=== PATIENT | female | born 1950 | race Two or more races ===

== ENCOUNTER → 2017-10-06 | Outpatient (CLI) | payer OTHER ==
[~2017-10-06] MED LIST: EFFEXOR25 MG; ELABIL; ELAVIL; ELAVIL PO; Flagyl PO; INTESTINEX1 CA1 PO; Pepcid 20 MG TABLET PO; Protonix PO; TRAMADOL HCL-AP1 TAB PO; [UNRECOGNIZED DRUG - OTHER]
== END | disposition home or self-care (01) ==
LOC: RAD 15:50
DX: H25.011 Cortical age-related cataract, right eye (principal); Z01.810 Encounter for preprocedural cardiovascular examination

== ENCOUNTER 2018-04-05 15:53 | Outpatient (CLI) | payer OTHER | END 2018-04-05 16:57 | disposition home or self-care (01) | LOC: RAD 15:53 | DX: M25.571 Pain in right ankle and joints of right foot (principal); M25.572 Pain in left ankle and joints of left foot ==

== ENCOUNTER 2018-04-12 08:02 | Outpatient (CLI) | payer OTHER | END 2018-04-12 08:05 | disposition home or self-care (01) | LOC: SONOGRAMA 08:02 | DX: M25.571 Pain in right ankle and joints of right foot (principal); M25.572 Pain in left ankle and joints of left foot ==

== ENCOUNTER 2018-05-01 08:05 | Outpatient (CLI) | payer OTHER | END 2018-05-01 08:19 | disposition home or self-care (01) | LOC: MAMO-SONO 08:05 | DX: Z12.31 Encounter for screening mammogram for malignant neoplasm of breast (principal); Z87.898 Personal history of other specified conditions; Q85.01 Neurofibromatosis, type 1; K21.9 Gastro-esophageal reflux disease without esophagitis; I10 Essential (primary) hypertension; M54.5 Low back pain; G62.89 Other specified polyneuropathies; F41.8 Other specified anxiety disorders; N39.0 Urinary tract infection, site not specified; M17.11 Unilateral primary osteoarthritis, right knee; E78.89 Other lipoprotein metabolism disorders ==

== ENCOUNTER → 2018-05-16 | Outpatient (CLI) | payer OTHER | END | disposition home or self-care (01) | LOC: NUCLEAR 05-10 11:00 | DX: M81.0 Age-related osteoporosis without current pathological fracture (principal); Q85.01 Neurofibromatosis, type 1; K21.9 Gastro-esophageal reflux disease without esophagitis; I10 Essential (primary) hypertension; M54.5 Low back pain; G62.89 Other specified polyneuropathies; F41.8 Other specified anxiety disorders; N39.0 Urinary tract infection, site not specified; M17.11 Unilateral primary osteoarthritis, right knee; E78.89 Other lipoprotein metabolism disorders ==

== ENCOUNTER 2018-06-16 11:13 | Outpatient (CLI) | payer OTHER | END 2018-06-16 11:23 | disposition home or self-care (01) | LOC: RAD 501 11:13 | DX: M54.5 Low back pain (principal); M54.6 Pain in thoracic spine ==

== ENCOUNTER 2018-11-28 13:23 | Outpatient (CLI) | payer OTHER | END 2018-11-28 13:34 | disposition home or self-care (01) | LOC: SONOGRAMA 13:23 → MAMO-SONO 14:15 | DX: N60.11 Diffuse cystic mastopathy of right breast (principal); N60.12 Diffuse cystic mastopathy of left breast ==

== ENCOUNTER → 2019-01-10 | Emergency (ER) | payer OTHER ==
[~2019-01-10] VITALS: Ht 142.2 cm; Wt 56.7 kg
[~2019-01-10] MED LIST changes: +AZO STANDARD95 MG; +ZANTAC150 M3; +ZOCOR20 MG
== END | disposition home or self-care (01) ==
LOC: ER 06:57
DX: N39.0 Urinary tract infection, site not specified (principal)

== ENCOUNTER 2019-03-06 13:17 | Outpatient (CLI) | payer OTHER | END 2019-03-06 13:23 | disposition home or self-care (01) | LOC: SONOGRAMA 13:17 → MAMO-SONO 14:15 | DX: E04.2 Nontoxic multinodular goiter (principal); R22.1 Localized swelling, mass and lump, neck ==

== ENCOUNTER 2019-03-06 14:04 | Outpatient (CLI) | payer OTHER | END 2019-03-06 14:08 | disposition home or self-care (01) | LOC: RAD 14:04 | DX: M54.5 Low back pain (principal) ==

== ENCOUNTER 2019-05-03 13:30 | Outpatient (CLI) | payer OTHER | END 2019-05-03 14:40 | disposition home or self-care (01) | LOC: TOM 13:30 | DX: R51 Headache (principal); R32 Unspecified urinary incontinence ==

== ENCOUNTER → 2019-07-09 | Outpatient (CLI) | payer OTHER | END | disposition home or self-care (01) | LOC: RAD 09:59 | DX: J01.80 Other acute sinusitis (principal); J32.8 Other chronic sinusitis ==

== ENCOUNTER 2019-08-06 09:33 | Outpatient (CLI) | payer OTHER | END 2019-08-06 09:36 | disposition home or self-care (01) | LOC: MAMO-SONO 09:33 | DX: Z12.31 Encounter for screening mammogram for malignant neoplasm of breast (principal); E78.89 Other lipoprotein metabolism disorders; F41.8 Other specified anxiety disorders; G62.89 Other specified polyneuropathies; M17.11 Unilateral primary osteoarthritis, right knee; M54.5 Low back pain; Q85.01 Neurofibromatosis, type 1; K21.9 Gastro-esophageal reflux disease without esophagitis; M81.0 Age-related osteoporosis without current pathological fracture; M06.011 Rheumatoid arthritis without rheumatoid factor, right shoulder; M79.7 Fibromyalgia ==

== ENCOUNTER → 2019-10-31 | Outpatient (CLI) | payer OTHER | END | disposition home or self-care (01) | LOC: RAD 08:05 | DX: M54.2 Cervicalgia (principal) ==

== ENCOUNTER 2019-11-23 07:14 | Inpatient (IN) | payer OTHER ==
[~2019-11-23] VITALS: Ht 142.2 cm; Wt 56.7 kg
[2019-11-26] MEDS ORDERED: HYOSCYAMINE0.125 M1 SL (07:24)
[2019-11-26] MEDS ORDERED: AMITRIPTYLINE H25 MG PO (07:24)
== END 2019-11-26 09:07 | disposition home or self-care (01) | DRG 392 ==
LOC: ER 07:14 → SURG 20:05
PROVIDERS: ADMIT Internal Medicine; ATTEND Internal Medicine
PROC: BW21YZZ Computerized Tomography (CT Scan) of Abdomen and Pelvis using Other Contrast (ICD-10-PCS; principal; 2019-11-23)
DX: K52.89 Other specified noninfective gastroenteritis and colitis (principal); N39.0 Urinary tract infection, site not specified; K57.30 Diverticulosis of large intestine without perforation or abscess without bleeding; R10.32 Left lower quadrant pain; S01.02XA Laceration with foreign body of scalp, initial encounter; W17.89XA Other fall from one level to another, initial encounter; Z03.818 Encounter for observation for suspected exposure to other biological agents ruled out

== ENCOUNTER 2019-12-30 10:35 | Emergency (ER) | payer OTHER ==
[~2019-12-30] VITALS: Ht 144.8 cm; Wt 56.2 kg
[~2019-12-30 10:35] MED LIST changes: +AMITRIPTYLINE H25 MG PO; +HYOSCYAMINE0.125 M1 SL
[2019-12-30] MEDS ORDERED: PEPCID AC20 MG (10:44)
== END 2019-12-30 17:27 | disposition home or self-care (01) ==
LOC: ER 10:35
DX: K57.90 Diverticulosis of intestine, part unspecified, without perforation or abscess without bleeding (principal); E86.0 Dehydration; N32.2 Vesical fistula, not elsewhere classified

== ENCOUNTER 2020-01-08 14:26 | Outpatient (CLI) | payer OTHER ==
[~2020-01-08 14:26] MED LIST changes: +PEPCID AC20 MG
== END 2020-01-08 14:37 | disposition home or self-care (01) ==
LOC: RAD 14:26
PROVIDERS: ATTEND Physical Medicine & Rehabilitation
DX: M17.12 Unilateral primary osteoarthritis, left knee (principal); M19.011 Primary osteoarthritis, right shoulder

== ENCOUNTER 2020-01-11 07:16 | Emergency (ER) | payer OTHER ==
[~2020-01-11] VITALS: Ht 142.2 cm; Wt 45.4 kg
[2020-01-11] MEDS ORDERED: ZOFRAN8 MG PO (14:59)
[2020-01-11] MEDS ORDERED: KEFLEX500 MG PO (14:59)
== END 2020-01-11 15:55 | disposition home or self-care (01) ==
LOC: ER 07:16
DX: K29.00 Acute gastritis without bleeding (principal); K59.09 Other constipation; Z03.818 Encounter for observation for suspected exposure to other biological agents ruled out

== ENCOUNTER 2020-01-29 07:09 | Outpatient (CLI) | payer OTHER ==
[~2020-01-29 07:09] MED LIST changes: +KEFLEX500 MG PO; +ZOFRAN8 MG PO
== END 2020-01-29 07:14 | disposition home or self-care (01) ==
LOC: RAD 07:09
DX: N20.0 Calculus of kidney (principal)

== ENCOUNTER 2020-02-27 13:11 | Outpatient (CLI) | payer OTHER | END 2020-02-27 13:17 | disposition home or self-care (01) | LOC: SONOGRAMA 13:11 → MAMO-SONO 13:15 → SONOGRAMA 13:17 | PROVIDERS: ATTEND Physical Medicine & Rehabilitation | DX: M75.111 Incomplete rotator cuff tear or rupture of right shoulder, not specified as traumatic (principal) ==

== ENCOUNTER 2020-03-04 13:25 | Outpatient (CLI) | payer OTHER | END 2020-03-04 13:30 | disposition home or self-care (01) | LOC: RAD 13:25 | PROVIDERS: ATTEND Physical Medicine & Rehabilitation | DX: M25.512 Pain in left shoulder (principal) ==

== ENCOUNTER 2020-03-17 10:15 | Outpatient (CLI) | payer OTHER | END 2020-03-17 10:23 | disposition home or self-care (01) | LOC: MRI 10:15 | PROVIDERS: ATTEND Physical Medicine & Rehabilitation | DX: M25.512 Pain in left shoulder (principal) | CPT/HCPCS: 73221 ==

== ENCOUNTER 2020-03-19 10:42 | Outpatient (CLI) | payer OTHER | END 2020-03-19 10:53 | disposition home or self-care (01) | LOC: NUCLEAR 10:42 | PROVIDERS: ATTEND Physical Medicine & Rehabilitation | DX: I82.622 Acute embolism and thrombosis of deep veins of left upper extremity (principal) ==

== ENCOUNTER 2020-03-28 13:26 | Outpatient (CLI) | payer OTHER | END 2020-03-28 13:33 | disposition home or self-care (01) | LOC: MRI 13:26 | PROVIDERS: ATTEND Physical Medicine & Rehabilitation | DX: M75.31 Calcific tendinitis of right shoulder (principal); M75.51 Bursitis of right shoulder | CPT/HCPCS: 73223; A9575; 73221 ==

== ENCOUNTER 2020-04-25 10:02 | Outpatient (CLI) | payer OTHER | END 2020-04-25 10:08 | disposition home or self-care (01) | LOC: LAB 10:02 | PROVIDERS: ATTEND Radiology Diagnostic Radiology | DX: R22.1 Localized swelling, mass and lump, neck (principal) ==

== ENCOUNTER → 2020-04-28 | Outpatient (CLI) | payer OTHER | END | disposition home or self-care (01) | LOC: TOM 08:40 | PROVIDERS: ATTEND Surgery | DX: E04.2 Nontoxic multinodular goiter (principal); R22.1 Localized swelling, mass and lump, neck | CPT/HCPCS: 70491; Q9965 ==

== ENCOUNTER 2020-07-04 10:25 | Outpatient (CLI) | payer OTHER | END 2020-07-04 10:33 | disposition home or self-care (01) | LOC: RAD 10:25 | PROVIDERS: ATTEND Physical Medicine & Rehabilitation | DX: M50.323 Other cervical disc degeneration at C6-C7 level (principal) ==

== ENCOUNTER 2020-07-17 14:06 | Outpatient (CLI) | payer OTHER | END 2020-07-17 14:25 | disposition home or self-care (01) | LOC: NUCLEAR 14:06 | PROVIDERS: ATTEND Internal Medicine | DX: M81.0 Age-related osteoporosis without current pathological fracture (principal) ==

== ENCOUNTER 2020-07-18 09:28 | Outpatient (CLI) | payer OTHER | END 2020-07-18 09:37 | disposition home or self-care (01) | LOC: MRI 09:28 | PROVIDERS: ATTEND Physical Medicine & Rehabilitation | DX: M50.323 Other cervical disc degeneration at C6-C7 level (principal) | CPT/HCPCS: 72141 ==

== ENCOUNTER → 2020-09-18 08:48 | Outpatient (CLI) | payer OTHER | END | disposition home or self-care (01) | LOC: LAB 08:48 | PROVIDERS: ATTEND Internal Medicine | DX: E78.89 Other lipoprotein metabolism disorders (principal); F41.8 Other specified anxiety disorders; G62.89 Other specified polyneuropathies; M15.8 Other polyosteoarthritis; M54.5 Low back pain; Q85.01 Neurofibromatosis, type 1; K21.9 Gastro-esophageal reflux disease without esophagitis; M81.0 Age-related osteoporosis without current pathological fracture; M06.011 Rheumatoid arthritis without rheumatoid factor, right shoulder; M06.4 Inflammatory polyarthropathy; M79.7 Fibromyalgia; M54.2 Cervicalgia; I67.1 Cerebral aneurysm, nonruptured; H81.313 Aural vertigo, bilateral; R22.2 Localized swelling, mass and lump, trunk; R49.0 Dysphonia; J09.X2 Influenza due to identified novel influenza A virus with other respiratory manifestations; Z20.828 Contact with and (suspected) exposure to other viral communicable diseases; Z13.820 Encounter for screening for osteoporosis; E78.49 Other hyperlipidemia ==

== ENCOUNTER → 2021-03-03 | Outpatient (CLI) | payer OTHER | END | disposition home or self-care (01) | LOC: RAD 09:10 | PROVIDERS: ATTEND Physical Medicine & Rehabilitation | DX: M79.642 Pain in left hand (principal) ==

== ENCOUNTER 2021-05-06 09:21 | Emergency (ER) | payer OTHER ==
[~2021-05-06] VITALS: Ht 149.9 cm; Wt 55.3 kg
[2021-05-06] MEDS ORDERED: LEVSIN/SL0.125 MG SL (16:57)
[2021-05-06] MEDS ORDERED: PEPCID AC20 MG PO (16:57)
[2021-05-06] MEDS ORDERED: ZOFRAN8 MG PO (16:57)
== END 2021-05-06 17:20 | disposition home or self-care (01) ==
LOC: ER 09:21
DX: K52.89 Other specified noninfective gastroenteritis and colitis (principal); E86.0 Dehydration; E87.8 Other disorders of electrolyte and fluid balance, not elsewhere classified

== ENCOUNTER 2021-06-13 09:13 | Emergency (ER) | payer OTHER ==
[~2021-06-13] VITALS: Ht 142.2 cm; Wt 61.2 kg
[~2021-06-13 09:13] MED LIST changes: +LEVSIN/SL0.125 MG SL; +PEPCID AC20 MG PO
[2021-06-13] MEDS ORDERED: SIMVASTATIN10 MG PO (09:25)
== END 2021-06-13 10:29 | disposition home or self-care (01) ==
LOC: ER 09:13
DX: K59.09 Other constipation (principal)

== ENCOUNTER 2021-12-22 12:48 | Outpatient (CLI) | payer OTHER ==
[~2021-12-22 12:48] MED LIST changes: +SIMVASTATIN10 MG PO
== END 2021-12-22 13:07 | disposition home or self-care (01) ==
LOC: MAMO-SONO 12:48
PROVIDERS: ATTEND Internal Medicine
DX: N60.11 Diffuse cystic mastopathy of right breast (principal); N60.12 Diffuse cystic mastopathy of left breast

== ENCOUNTER 2022-01-07 07:50 | Outpatient (CLI) | payer OTHER | END 2022-01-07 07:58 | disposition home or self-care (01) | LOC: SONOGRAMA 07:50 | DX: K80.00 Calculus of gallbladder with acute cholecystitis without obstruction (principal); J18.0 Bronchopneumonia, unspecified organism ==

== ENCOUNTER 2022-04-02 09:25 | Outpatient (CLI) | payer OTHER | END 2022-04-02 09:28 | disposition home or self-care (01) | LOC: LAB 09:25 | PROVIDERS: ATTEND Radiology Diagnostic Radiology | DX: I71.9 Aortic aneurysm of unspecified site, without rupture (principal) ==

== ENCOUNTER 2022-04-06 08:10 | Outpatient (CLI) | payer OTHER | END 2022-04-06 08:25 | disposition home or self-care (01) | LOC: TOM 08:10 | PROVIDERS: ATTEND General Practice | DX: I71.9 Aortic aneurysm of unspecified site, without rupture (principal) | CPT/HCPCS: 74177; Q9965 ==

== ENCOUNTER 2022-06-21 09:41 | Emergency (ER) | payer OTHER ==
[~2022-06-21] VITALS: Ht 142.2 cm; Wt 57.2 kg
== END 2022-06-21 13:43 | disposition home or self-care (01) ==
LOC: ER 09:41
DX: J06.9 Acute upper respiratory infection, unspecified (principal); Z20.822 Contact with and (suspected) exposure to COVID-19

== ENCOUNTER 2022-07-30 05:45 | Day surgery (SDC) | payer OTHER ==
[~2022-07-30 05:45] MED LIST changes: +FOSAMAX70 MG PO; +PEPCID40 MG PO; +ZYRTEC10 M3 PO
== END 2022-07-30 16:55 | disposition home or self-care (01) ==
LOC: CIR.AMB 05:45 → U 05:45 → CIR.AMB 07:00
PROVIDERS: ATTEND Surgery
DX: D48.62 Neoplasm of uncertain behavior of left breast (principal); N60.82 Other benign mammary dysplasias of left breast; R92.1 Mammographic calcification found on diagnostic imaging of breast; D36.10 Benign neoplasm of peripheral nerves and autonomic nervous system, unspecified; Z20.822 Contact with and (suspected) exposure to COVID-19
CPT/HCPCS: 19301; 19281; L8699

== ENCOUNTER 2022-10-30 07:22 | Outpatient (CLI) | payer OTHER | END 2022-10-30 07:27 | disposition home or self-care (01) | LOC: LAB 07:22 | PROVIDERS: ATTEND Internal Medicine Hematology & Oncology | DX: D50.8 Other iron deficiency anemias (principal); R79.9 Abnormal finding of blood chemistry, unspecified; I10 Essential (primary) hypertension; R74.02 Elevation of levels of lactic acid dehydrogenase [LDH]; K76.89 Other specified diseases of liver; D51.8 Other vitamin B12 deficiency anemias; D51.1 Vitamin B12 deficiency anemia due to selective vitamin B12 malabsorption with proteinuria; D51.0 Vitamin B12 deficiency anemia due to intrinsic factor deficiency; E03.8 Other specified hypothyroidism; E06.3 Autoimmune thyroiditis; C50.919 Malignant neoplasm of unspecified site of unspecified female breast; R97.8 Other abnormal tumor markers; C25.9 Malignant neoplasm of pancreas, unspecified; D56.9 Thalassemia, unspecified; R97.1 Elevated cancer antigen 125 [CA 125]; D47.2 Monoclonal gammopathy; N60.82 Other benign mammary dysplasias of left breast; E78.2 Mixed hyperlipidemia; Q85.00 Neurofibromatosis, unspecified ==

== ENCOUNTER 2023-01-29 08:27 | Outpatient (CLI) | payer OTHER | END 2023-01-29 08:30 | disposition home or self-care (01) | LOC: RAD 08:27 | PROVIDERS: ATTEND Physical Medicine & Rehabilitation | DX: M54.6 Pain in thoracic spine (principal); M54.59 Other low back pain ==

== ENCOUNTER → 2023-02-11 | Outpatient (CLI) | payer OTHER | END | disposition home or self-care (01) | LOC: NUCLEAR 13:09 | PROVIDERS: ATTEND Internal Medicine | DX: Z13.820 Encounter for screening for osteoporosis (principal); N60.82 Other benign mammary dysplasias of left breast; E78.5 Hyperlipidemia, unspecified; Q85.01 Neurofibromatosis, type 1; H81.4 Vertigo of central origin ==

== ENCOUNTER 2023-02-26 07:42 | Outpatient (CLI) | payer OTHER | END 2023-02-26 07:45 | disposition home or self-care (01) | LOC: LAB 07:42 | PROVIDERS: ATTEND Internal Medicine Hematology & Oncology | DX: D50.8 Other iron deficiency anemias (principal); I10 Essential (primary) hypertension; R74.02 Elevation of levels of lactic acid dehydrogenase [LDH]; K76.89 Other specified diseases of liver; D63.8 Anemia in other chronic diseases classified elsewhere; D51.8 Other vitamin B12 deficiency anemias; R97.8 Other abnormal tumor markers; R97.0 Elevated carcinoembryonic antigen [CEA]; D47.2 Monoclonal gammopathy; N60.82 Other benign mammary dysplasias of left breast; E78.2 Mixed hyperlipidemia; Q85.00 Neurofibromatosis, unspecified; C50.919 Malignant neoplasm of unspecified site of unspecified female breast ==

== ENCOUNTER 2023-04-01 13:52 | Outpatient (CLI) | payer OTHER ==
[~2023-04-01 13:52] MED LIST changes: +DICLOFENAC SODI75 MG PO; +[UNRECOGNIZED DRUG - OTHER]
== END 2023-04-01 13:59 | disposition home or self-care (01) ==
LOC: TOM 13:52
PROVIDERS: ATTEND Physical Medicine & Rehabilitation
DX: M25.552 Pain in left hip (principal)

== ENCOUNTER 2023-04-14 12:50 | Outpatient (CLI) | payer OTHER | END 2023-04-14 13:05 | disposition home or self-care (01) | LOC: MAMO-SONO 12:50 | PROVIDERS: ATTEND Internal Medicine Hematology & Oncology | DX: Z12.31 Encounter for screening mammogram for malignant neoplasm of breast (principal); N63.0 Unspecified lump in unspecified breast; N64.4 Mastodynia ==

== ENCOUNTER 2023-05-25 07:12 | Outpatient (CLI) | payer OTHER | END 2023-05-25 07:14 | disposition home or self-care (01) | LOC: NUCLEAR 07:12 | PROVIDERS: ATTEND Physical Medicine & Rehabilitation | DX: M06.4 Inflammatory polyarthropathy (principal) | CPT/HCPCS: 78315; A9503 ==

== ENCOUNTER 2023-05-31 09:45 | Outpatient (CLI) | payer OTHER | END 2023-05-31 09:53 | disposition home or self-care (01) | LOC: MRI 09:45 | PROVIDERS: ATTEND Physical Medicine & Rehabilitation | DX: M25.552 Pain in left hip (principal) | CPT/HCPCS: 73721 ==

== ENCOUNTER 2023-07-06 06:49 | Outpatient (CLI) | payer OTHER ==
[2023-07-06 07:22] LABS: HEMATOCRIT 36.4 % (36.0-45.00); HEMOGLOBIN 12.3 g/dL (12.0-15.00); MEAN CELL VOLUME 89.9 fL (80.00-100.00); MEAN CORPUSCULAR HEMOGLOBIN 30.4 pg (27.00-32.0); MEAN CORPUSCULAR HGB CONC 33.8 g/dl (32.0-36.0); PLATELET COUNT 332 K/uL (150-450); RED BLOOD COUNT 4.05 M/uL (4.00-6.00); RED CELL DISTRIBUTION WIDTH 15.2 % (11.5-14.5)
[2023-07-06 08:12] LABS: % SATURACION 18.2 % (15-50); ALBUMIN 2.9 gm/dL (3.4-5.0); BILIRUBIN TOTAL 0.31 mg/dL (0.3-1.2); CALCIUM 8.9 mg/dL (8.5-10.1); CREATININE SERUM 0.88 mg/dL (0.55-1.02); FERRITIN 45.6 NG/ML (8-252); GFR 62.99; GLOBULINA 3.4 G/DL (2.4-3.5); POTASSIUM 4.51 mEq/L (3.5-5.1); TOTAL PROTEIN 6.3 gm/dL (6.4-8.2)
[2023-07-06 08:36] LABS: MANUAL PLATELET COUNT 408
[2023-07-06 08:38] LABS: PLATELET ESTIMATE NORMAL (NORMAL)
[2023-07-06 11:21] LABS: FOLIC ACID > 20.00 ng/ml (4.78-20)
[2023-07-07 06:06] LABS: CA 125 7.2 U/mL (0.0-38.1)
== END 2023-07-06 06:50 | disposition home or self-care (01) ==
LOC: LAB 06:49
PROVIDERS: ATTEND Internal Medicine Hematology & Oncology
DX: D50.8 Other iron deficiency anemias (principal); R79.9 Abnormal finding of blood chemistry, unspecified; I10 Essential (primary) hypertension; R74.02 Elevation of levels of lactic acid dehydrogenase [LDH]; K76.89 Other specified diseases of liver; C50.919 Malignant neoplasm of unspecified site of unspecified female breast; R97.8 Other abnormal tumor markers; C25.9 Malignant neoplasm of pancreas, unspecified; R97.1 Elevated cancer antigen 125 [CA 125]; R97.0 Elevated carcinoembryonic antigen [CEA]

== ENCOUNTER 2023-07-18 08:10 | Outpatient (CLI) | payer OTHER | END 2023-07-18 08:26 | disposition home or self-care (01) | LOC: TOM 08:10 | PROVIDERS: ATTEND Internal Medicine Gastroenterology | DX: Z12.11 Encounter for screening for malignant neoplasm of colon (principal); K57.30 Diverticulosis of large intestine without perforation or abscess without bleeding ==

== ENCOUNTER 2023-07-22 11:12 | Outpatient (CLI) | payer OTHER | END 2023-07-22 11:22 | disposition home or self-care (01) | LOC: MRI 11:12 | PROVIDERS: ATTEND Physical Medicine & Rehabilitation | DX: M25.561 Pain in right knee (principal); M25.562 Pain in left knee | CPT/HCPCS: 73721 ==

== ENCOUNTER 2023-08-02 07:57 | Emergency (ER) | payer OTHER ==
[~2023-08-02] VITALS: Ht 142.2 cm; Wt 59.0 kg
[2023-08-02] MEDS ORDERED: ACETAMINOPHEN 500 MG GEL..CAP PO ONE (09:00)
[2023-08-02] MEDS ORDERED: DEXAMETHASONE SODIUM PHOSPHATE 4 MG/ML VIAL IM ONE (09:00)
[2023-08-02 09:33] LABS: HEMATOCRIT 34.7 % (36.0-45.00); HEMOGLOBIN 11.4 g/dL (12.0-15.00); MEAN CELL VOLUME 88.3 fL (80.00-100.00); MEAN CORPUSCULAR HEMOGLOBIN 29.1 pg (27.00-32.0); PLATELET COUNT 263 K/uL (150-450); RED BLOOD COUNT 3.93 M/uL (4.00-6.00); RED CELL DISTRIBUTION WIDTH 14.6 % (11.5-14.5)
[2023-08-02 09:54] LABS: CALCIUM 8.6 mg/dL (8.5-10.1); CREATININE SERUM 0.81 mg/dL (0.55-1.02); GFR 69.31; POTASSIUM 3.6 mEq/L (3.5-5.1)
[2023-08-02 11:34] LABS: CALCIUM 8.6 mg/dL (8.5-10.1); CREATININE SERUM 0.81 mg/dL (0.55-1.02); GFR 69.31; POTASSIUM 3.87 mEq/L (3.5-5.1)
[2023-08-02 11:35] LABS: C-REACTIVE PROTEIN 20.5 MG/DL (0.00-0.29); INR 1.01; PARTIAL THROMBOPLASTIN TIME 30.3 SECONDS (22.0-34.0); PROTHROMBIN TIME 10.6 SECONDS (9.0-11.5)
[2023-08-02 13:33] LABS: PH,URINE 6.5 (5.0-8.0); URINE APPEARANCE Turbid; URINE BILIRRUBIN Negative (NEGATIVE); URINE BLOOD Moderate; URINE COLOR Yellow; URINE GLUCOSE Negative (NEGATIVE); URINE LEUKOCYTE Large; URINE NITRATE Negative; URINE PROTEIN 30 (NEGATIVE); URINE UROBILINOGEN 0.2 E.U./dl
[2023-08-02 13:34] LABS: URINE EPITHELIAL CELLS 8.3 uL (0.0-38.8)
[2023-08-02 13:51] LABS: URINE BACTERIA > 9821.5 uL (0.0-1933); URINE WBC 3554.4 uL (0.0-23.2)
[2023-08-02] MEDS ORDERED: LEVOFLOXACIN750 MG PO (14:09)
== END 2023-08-02 14:15 | disposition home or self-care (01) ==
LOC: ER 07:57
PROVIDERS: General Practice
DX: N39.0 Urinary tract infection, site not specified (principal); Z20.822 Contact with and (suspected) exposure to COVID-19; B96.29 Other Escherichia coli [E. coli] as the cause of diseases classified elsewhere; Z16.11 Resistance to penicillins; Z16.19 Resistance to other specified beta lactam antibiotics
CPT/HCPCS: 36415; 71046; 96372; 99283; J1100

== ENCOUNTER 2024-02-06 07:00 | Inpatient (IN) | payer OTHER ==
[~2024-02-06 07:00] MED LIST changes: +LEVOFLOXACIN750 MG PO
[2024-02-06 08:37] LABS: HEMATOCRIT 37.5 % (36.0-45.00); HEMOGLOBIN 12.4 g/dL (12.0-15.00); MEAN CELL VOLUME 87.8 fL (80.00-100.00); MEAN CORPUSCULAR HEMOGLOBIN 28.9 pg (27.00-32.0); MEAN CORPUSCULAR HGB CONC 32.9 g/dl (32.0-36.0); PLATELET COUNT 316 K/uL (150-450); RED BLOOD COUNT 4.27 M/uL (4.00-6.00); RED CELL DISTRIBUTION WIDTH 14.7 % (11.5-14.5)
[2024-02-06] MEDS ORDERED: GABAPENTIN 50 MG (09:02)
[2024-02-06] MEDS ORDERED: EVISTA (09:02)
[2024-02-06] MEDS ORDERED: ZOCOR10 (09:03)
[2024-02-06 09:13] LABS: INR 0.95; PARTIAL THROMBOPLASTIN TIME 29.9 SECONDS (22.0-34.0); PROTHROMBIN TIME 10.4 SECONDS (9.0-11.5)
[2024-02-06 09:37] LABS: ALBUMIN 3.2 gm/dL (3.4-5.0); BILIRUBIN TOTAL 0.27 mg/dL (0.3-1.2); CALCIUM 8.9 mg/dL (8.5-10.1); CREATININE SERUM 0.8 mg/dL (0.55-1.02); GFR 70.12; GLOBULINA 3.6 G/DL (2.4-3.5); POTASSIUM 4.01 mEq/L (3.5-5.1); TOTAL PROTEIN 6.8 gm/dL (6.4-8.2)
[2024-02-06 11:46] LABS: PH,URINE 5.5 (5.0-8.0); URINE APPEARANCE Clear; URINE BILIRRUBIN Negative (NEGATIVE); URINE BLOOD Negative; URINE COLOR Yellow; URINE GLUCOSE Negative (NEGATIVE); URINE KETONE Negative (NEGATIVE); URINE LEUKOCYTE Small; URINE NITRATE Negative; URINE PROTEIN Negative (NEGATIVE); URINE UROBILINOGEN 0.2 E.U./dl
[2024-02-06 11:51] LABS: URINE BACTERIA 118.4 uL (0.0-1933); URINE EPITHELIAL CELLS 34.7 uL (0.0-38.8); URINE RBC 6.7 uL (0.0-20.8); URINE WBC 30.4 uL (0.0-23.2)
[2024-02-06 12:14] LABS: URINE CAST 0.91 uL (0.0-1.40)
[2024-02-14] MEDS ORDERED: TRANEXAMIC ACID 100MG/1ML (1000MG) AMPUL IV ONE (12:56)
[2024-02-14] MEDS ORDERED: CEFAZOLIN SODIUM 1,000 MG VIAL ONE (12:59)
[2024-02-14] MEDS ORDERED: VANCOMYCIN HCL 1,000 MG VIAL ONE (13:59)
[2024-02-14] MEDS ORDERED: POVIDONE-IODINE 118 ML BOTT TOP ONE (16:25)
[2024-02-14] MEDS ORDERED: MORPHINE SULFATE 4 MG/ML CARTRIDGE IV PRN (17:30)
[2024-02-14] MEDS ORDERED: SODIUM CHLORIDE 0.45 % 1,000 ML IV SCH (17:30)
[2024-02-14] MEDS ORDERED: OxyCODONE HCL 5 MG TABLET (ROXICODONE) PO PRN (17:30)
[2024-02-14] MEDS ORDERED: ONDANSETRON HCL 2 MG/ML VIAL IV PRN (17:30)
[2024-02-14] MEDS ORDERED: ACETAMINOPHEN 500 MG GEL..CAP PO SCH (18:00)
[2024-02-14] MEDS ORDERED: ONDANSETRON HCL 2 MG/ML VIAL ONE (20:24)
[2024-02-14] MEDS ORDERED: ONDANSETRON HCL 2 MG/ML VIAL IV ONE (20:25)
[2024-02-14] MEDS ORDERED: MORPHINE SULFATE 4 MG/ML VIAL IV ONE (21:20)
[2024-02-15] MEDS ORDERED: CEFAZOLIN SODIUM 1,000 MG VIAL IV SCH (01:00)
[2024-02-15] MEDS ORDERED: GABAPENTIN 300 MG CAPSULE PO SCH (01:00)
[2024-02-15] MEDS ORDERED: APIXABAN 2.5 MG TABLET PO SCH (09:00)
[2024-02-15] MEDS ORDERED: SENNOSIDES 1 TAB TABLET PO SCH (09:00)
[2024-02-15] MEDS ORDERED: PERCOCET 5-3251 EACH PO (09:14)
[2024-02-15] MEDS ORDERED: ELIQUIS2.5 MG PO (09:14)
[2024-02-15] MEDS ORDERED: DUI500 PO (09:14)
[2024-02-15 12:56] LABS: HEMATOCRIT 31.3 % (36.0-45.00); HEMOGLOBIN 10.3 g/dL (12.0-15.00); MEAN CELL VOLUME 87.6 fL (80.00-100.00); MEAN CORPUSCULAR HEMOGLOBIN 28.8 pg (27.00-32.0); MEAN CORPUSCULAR HGB CONC 32.9 g/dl (32.0-36.0); PLATELET COUNT 287 K/uL (150-450); RED BLOOD COUNT 3.57 M/uL (4.00-6.00); RED CELL DISTRIBUTION WIDTH 14.6 % (11.5-14.5)
[2024-02-15] MEDS ORDERED: VITAMIN B COMPLEX 1 EACH PO SCH (17:00)
[2024-02-15] MEDS ORDERED: SOD FERRIC GLUC COMPLX/SUCROSE 62.5 MG/5 ML AMPUL IV SCH (17:00)
[2024-02-15] MEDS ORDERED: Cyanocobalamin/Mecobalamin 1 TAB.SL SL SCH (17:00)
[2024-02-16 07:40] LABS: HEMATOCRIT 30.5 % (36.0-45.00); HEMOGLOBIN 10.2 g/dL (12.0-15.00); MEAN CELL VOLUME 88.2 fL (80.00-100.00); MEAN CORPUSCULAR HEMOGLOBIN 29.5 pg (27.00-32.0); MEAN CORPUSCULAR HGB CONC 33.4 g/dl (32.0-36.0); PLATELET COUNT 249 K/uL (150-450); RED BLOOD COUNT 3.45 M/uL (4.00-6.00); RED CELL DISTRIBUTION WIDTH 14.8 % (11.5-14.5)
[2024-02-16] MEDS ORDERED: IRON FUM,PS/FOLIC ACID/VITC/B3 1 CAP CAPSULE PO SCH (09:00)
== END 2024-02-16 14:10 | DRG 470 ==
LOC: SURH 02-14 05:34 → O/R 02-14 05:34 → SURH 02-14 07:00 → OB/GYN 02-14 14:58 → SURH 02-14 20:03
PROVIDERS: ADMIT Orthopaedic Surgery; ATTEND Orthopaedic Surgery
PROC: 0MBM0ZZ Excision of Left Hip Bursa and Ligament, Open Approach (ICD-10-PCS; 2024-02-14)
PROC: 0SRD0JZ Replacement of Left Knee Joint with Synthetic Substitute, Open Approach (ICD-10-PCS; principal; 2024-02-14 10:15)
DX: M16.12 Unilateral primary osteoarthritis, left hip (principal); M70.62 Trochanteric bursitis, left hip; M25.652 Stiffness of left hip, not elsewhere classified

== ENCOUNTER 2024-06-21 09:24 | Outpatient (CLI) | payer OTHER ==
[~2024-06-21 09:24] MED LIST changes: +DUI500 PO; +ELIQUIS2.5 MG PO; +EVISTA; +GABAPENTIN 50 MG; +PERCOCET 5-3251 EACH PO; +ZOCOR10
== END 2024-06-21 09:33 | disposition home or self-care (01) ==
LOC: MAMO-SONO 09:24
PROVIDERS: ATTEND Internal Medicine
DX: M16.12 Unilateral primary osteoarthritis, left hip (principal); N60.82 Other benign mammary dysplasias of left breast; N60.11 Diffuse cystic mastopathy of right breast; N60.12 Diffuse cystic mastopathy of left breast; H81.313 Aural vertigo, bilateral; M79.7 Fibromyalgia; G62.9 Polyneuropathy, unspecified; Q85.01 Neurofibromatosis, type 1; N64.4 Mastodynia; N64.1 Fat necrosis of breast; Z12.31 Encounter for screening mammogram for malignant neoplasm of breast

== ENCOUNTER 2024-08-06 07:38 | Outpatient (CLI) | payer OTHER | END 2024-08-06 07:41 | disposition home or self-care (01) | LOC: RAD 07:38 | PROVIDERS: ATTEND Physical Medicine & Rehabilitation | DX: M25.571 Pain in right ankle and joints of right foot (principal); M25.572 Pain in left ankle and joints of left foot ==